=== PATIENT | male | born 1960 | race Two or more races ===

== ENCOUNTER 2016-09-16 08:23 | Day surgery (SDC) | payer OTHER ==
[~2016-09-16 08:23] MED LIST: IV START KIT ONE; LACTATED RINGERS 1,000 ML ONE
[2016-09-16] MEDS ORDERED: LIDOCAINE 1% 2 ML VIAL ID PRN (08:48)
[2016-09-16] MEDS ORDERED: LACTATED RINGERS 1,000 ML IV SCH (08:48)
[2016-09-16] MEDS ORDERED: ONDANSETRON 4 MG/2ML 2 ML VIAL IV PRN (08:48)
[2016-09-16] MEDS ORDERED: PROPOFOL 20 ML IV ONE (09:51)
[2016-09-16 14:53] LABS: HELICOBACTER PYLORII DETECTION NEGATIVE (NEGATIVE)
--- NOTE | 2016-09-20 09:59 | SURGPATH ---
[facility] [address] [place] [id number] Patient Name: CATALINA HUMPHREYS MR#: [id number] : 1960 Gender: M Specimen #: [id number] Collected: 09/16/2016 Received: 09/17/2016 Reported: 09/20/2016 Submitting Phys: ANNA RUTLEDGE Copy To Phys: REINIER MONTES [facility] [place] Clinical History / Pre-Operative Diagnosis: EPIGASTRIC/ABDOMINAL PAIN; RULE OUT GASTRITIS Specimen Source / Surgical Procedure Performed: #1-ANTRUM X2; #2-GE JUNCTION X4 Interpretation: 1. GASTRIC ANTRUM, BIOPSY: - NO PATHOLOGIC ABNORMALITIES 2. GE JUNCTION, BIOPSY: - SQUAMOCOLUMNAR JUNCTION WITH MILD CHRONIC INFLAMMATION AND FOCAL GOBLET CELL METAPLASIA - NO DYSPLASIA IDENTIFIED Comment: A diagnosis of Martinez's esophagus requires the combination of abnormal esophageal endoscopic findings and biopsy-confirmed intestinal metaplasia. Clinicopathologic correlation is necessary. Electronically Signed Out Lino Rubio M.D. Gross Description: #1 The specimen is received in a formalin filled container labeled with the patient's name and "antrum". Two kenny biopsies are 0.4 and 0.5 cm. Totally embedded in cassette #1. #2 The specimen is received in a formalin filled container labeled with the patient's name and "GE junction". Five kenny biopsies are 0.3-0.4 cm. Totally embedded in cassette #2. Efraín Salguero Microscopic Description: 1. The sections show fragments of gastric mucosa exhibiting a normal architectural pattern. There are no inflammatory or neoplastic features and there are no Helicobacter-like organisms identified. 2. The sections show nonkeratinizing squamous mucosa with adjacent gastric mucosa. There is chronic inflammation within the lamina propria and there is focal goblet cell metaplasia. There are no dysplastic features identified. 1: 53277 2: 67169, 3126F K22.70
== END 2016-09-16 11:08 | disposition home or self-care (01) ==
LOC: SDC 08:23
PROVIDERS: ATTEND Surgery
PROC: 0DB68ZX Excision of Stomach, Via Natural or Artificial Opening Endoscopic, Diagnostic (ICD-10-PCS; principal; 2016-09-16)
PROC: 0DB48ZX Excision of Esophagogastric Junction, Via Natural or Artificial Opening Endoscopic, Diagnostic (ICD-10-PCS; 2016-09-16)
DX: K22.710 Barrett's esophagus with low grade dysplasia (principal); K29.50 Unspecified chronic gastritis without bleeding; G47.30 Sleep apnea, unspecified; F32.9 Major depressive disorder, single episode, unspecified; I25.2 Old myocardial infarction
CPT/HCPCS: 43239; 87081; J7120